=== PATIENT | female | born 1985 | race Caucasian/White ===

== ENCOUNTER 2016-09-14 17:33 | Emergency (ER) | payer OTHER ==
--- NOTE | ~2016-09-14 | CT71 ---
[facility] A Service of [facility] RADIOLOGY TEXT RESULTS PATIENT: JIE VAZQUEZ LOCATION: SED : 87 UNIT #: [id number] AGE: [address]: MELLISSA GÓMEZ PA-C SEX: F ORDER DR: [id number] [address] [address] [id number] MR#: [id number] Acc #: [id number] NAME: JIE VAZQUEZ : 1985 SEX: F STUDY DATE/TIME: 09/14/2016 18:15 UNIT: SED ROOM: STUDY DESCRIPTION: CT Head Wo Contrast Attending Physician: Mellissa Gómez Pa-C Ordering Physician: Physician Non-Staff Primary Care Physician: Primary Care Physician No MEDICAL IMAGING REPORT This report is preliminary unless electronic signature is present. EXAM Head CT without contrast, 09/14/2016 HISTORY Migraine headache for [address] exam was performed with one or more of the following radiation dose reduction techniques: automatic exposure control, adjustment of mA and/or kV according to patient size, and iterative reconstruction. FINDINGS Axial noncontrast images were obtained from the skull base to the vertex. Ventricular size and configuration are normal. There is no evidence of acute infarct or hemorrhage. There are no extraaxial fluid collections. No mass lesion or mass effect is seen. There are no skull fractures. IMPRESSION Normal noncontrast head CT. Dictated by... Rodolfo Pineda M.D. THIS IS AN ELECTRONICALLY VERIFIED REPORT Rodolfo Pineda M.D. at 09/15/2016 10:50 AM JASE/tomeka TD: 09/15/2016 00:59 JOB #: [id number] [facility] A Service [facility] RADIOLOGY TEXT RESULTS PATIENT: JIE VAZQUEZ LOCATION: SED : 87 UNIT #: [id number] AGE: [address]: MELLISSA GÓMEZ PA-C SEX: F ORDER DR: MEDICAL IMAGING REPORT
== END 2016-09-14 19:38 | disposition home or self-care (01) ==
LOC: SED 17:33
DX: I10 Essential (primary) hypertension (principal); Z88.0 Allergy status to penicillin; Z88.1 Allergy status to other antibiotic agents; Z90.49 Acquired absence of other specified parts of digestive tract
CPT/HCPCS: 36415; 70450; 96361; 96374; 96375; 99284; J1200; J1885; J2405; J2765